=== PATIENT | male | born 2005 | race Caucasian/White ===

== ENCOUNTER 2023-04-15 22:57 | Emergency (ER) | payer SELFPAY ==
--- NOTE | ~2023-04-15 | XR_ITS ---
EXAMINATION: XR HAND, RIGHT CLINICAL INFORMATION: Injury. COMPARISON: None available. TECHNIQUE: PA, lateral, and oblique views of the right hand. FINDINGS: The bones and soft tissues are normal. No fracture. Alignment is anatomic. Joint spaces are maintained. No erosions or soft tissue calcifications. XR/XR hand RT min 3V IMPRESSION: No significant abnormality.
[2023-04-15 23:04] VITALS: BP 129/76; PULSE 82; RESP 18; TEMP 36.7; O2SAT 99; BMI 29.6
[2023-04-16 03:36] VITALS: BP 112/43; PULSE 73; RESP 17; TEMP 36.7; O2SAT 99
[2023-04-16 04:27] VITALS: BP 116/61; PULSE 63; RESP 15; TEMP 36.5; O2SAT 99
--- NOTE | 2023-04-16 04:49 | ED.GENADULT ---
HPI - General Adult General Chief complaint: Animal Bite Stated complaint: rt hand dog bite Time Seen by Provider: 04/16/23 04:42 History of Present Illness HPI narrative: Patient is an ordinarily healthy 17-year-old male. Earlier tonight, at around 21:00 on Friday, he was in [facility]. Walking his godmother's dog when another dog without a leash or ulnar present started fighting with the dog the patient was walking. The patient attempted to separate the dogs and in doing so was bitten on the right hand by the unknown dog. The dog then ran away. There is no information available about the rabies status of the dog that bit the patient's hand. The patient was staying with his godparents in [place], [place]. Apparently the patient recently moved to [place] from [place]. They came to this hospital because the patient's godfather is originally from this area and is familiar with this hospital. Related Data Previous Rx's Medication Instructions Recorded amoxicillin 875 mg-potassium 1 tab PO BID #7 tabs 04/16/23 clavulanate 125 mg tablet Allergies Allergy/AdvReac Type Severity Reaction Status Date / Time No Known Allergies Allergy Verified 04/15/23 23:09 Review of Systems Review of Systems: Yes all other systems are reviewed and are negative [facility] Social History Social History Alcohol intake: never Smoked in Last 30 Days: No Use of substances other than those prescribed or required for medical reasons: No Advance Directives: No Advance Directives Information Provided: No Physical Exam ED Vital Signs: Vital Signs - 24 hr 04/15/23 23:04 04/16/23 03:36 04/16/23 04:27 Temperature 98.1 F 98.0 F 97.7 F Pulse Rate 82 73 63 Respiratory Rate 18 17 15 Blood Pressure 129/76 112/43 L 116/61 Pulse Oximetry 99 99 99 Oxygen Delivery Method Room Air Room Air Room Air BMI result Body Mass Index 29.6 Const Other: The patient is awake and alert. He has Band-Aids on his right hand. He otherwise looks like a well-developed 17-year-old in no acute distress. HENMT Other: The face is symmetrical. ?Mucous membranes moist. Eyes Other: Pupils are round equal, conjunctivae are clear, extraocular movements intact Resp Effort & Inspection: normal respiratory effort Skin Other: The patient has several small partial-thickness wounds to the skin of the right hand. No suturable lacerations. Neuro Other: Normal function of the right hand. Normal sensation. Extrem Other: The patient has several partial-thickness wounds to the skin of the right hand mostly on the radial side of the hand. No suturable lacerations. The patient has good range of motion of the wrist and all the joints of the right hand. No deformity. Medications Administered Discontinued Medications Generic Name Dose Route Start Last Admin Trade Name Freq PRN Reason Stop Dose Admin Amoxicillin/Clavulanate Potassium 875 mg 04/16/23 04:51 04/16/23 05:07 Amoxicillin/Potassium Clav 875 Mg Tablet PO 04/16/23 04:52 875 mg ONCE ONE Administration Bacitracin 1 appl 04/16/23 04:54 04/16/23 04:59 Bacitracin Oint 0.9 Gm Packet TOPICAL 04/16/23 04:55 1 appl ONCE ONE Administration Protocol Rabies Immune Globulin 1,820 unit 04/16/23 04:51 04/16/23 05:31 Rabies Immune Globulin/Pf 900 Unit/3 Ml Vial 20 unit/kg (1820 unit) 04/16/23 04:52 1,820 unit IM Administration ONCE ONE Rabies Vaccine Human Diploid Cell 1 ml 04/16/23 04:51 04/16/23 05:23 Rabies Vaccine, Human Diploid (Imovax) 1 Ml Vial IM 04/16/23 04:52 1 ml .ONCE ONE Administration Medical Decision Making Medical Decision Making MDM Narrative: The patient is a 17-year-old who sustained a dog bite to the right hand a couple of hours ago. The dog was not on a leash or attended by an cashier supervisor. Therefore no history is available regarding the dog's rabies vaccination status and the dog can be observed. Therefore the patient will require rabies prophylaxis. The wounds were cleaned and he was started on Augmentin in addition to his rabies prophylaxis. He was advised to return on days 3, 7, and 14 for additional rabies vaccine. He received his 1st dose of rabies vaccine in the emergency room today as well as rabies immune globulin. Lab Data Labs: Lab Results 04/16/23 Range/Units 06:11 Chlam trachomat DNA PCR NOT DETECTED (Not Detect.) N.gonorrhoeae DNA (PCR) NOT DETECTED (Not Detect.) Discharge Plan Discharge Clinical Impression: Dog bite of right hand Patient Disposition: Home, Self-Care Instructions: Animal Bite (ED) Additional Instructions: Right you experienced is potentially a rabies exposure. You have therefore been started on a course of rabies prophylaxis. You received a dose of rabies immune globulin today. He also received your 1st dose of vaccine. In addition to the medications you received for prophylaxis this morning you will need 3 additional doses of rabies vaccine. You will need a dose of rabies vaccine on April 19, April 23, and April 30. You may return to this emergency room for these additional vaccine doses or you may go to the emergency room if it is more convenient. You also have been started on a course of antibiotics to help prevent an infection developing on your right hand where you were bitten. Please keep the wounds on the right hand clean and dry and covered with a Band-Aid. If you have any concern about developing an infection in any of the wounds on the right hand please return to the emergency room for further evaluation. If returning to this hospital is not convenient you may go to a different emergency room. Additionally please work on getting a new primary care doctor. Prescriptions: New amoxicillin-pot clavulanate 875-125 mg tablet 1 tab PO BID Qty: 7 0RF Interventions: ED Discharge Assessment Last Done: 04/16/23 06:22 Discharge Date/Time: 04/16/23 06:23
[2023-04-16] MEDS: Bacitracin Oint 0.9 GM PACKET 1 APPL TOPICAL (04:59)
[2023-04-16] MEDS: Amoxicillin/Potassium Clav 875 MG TABLET PO (05:07)
[2023-04-16] MEDS: Rabies Vaccine, Human Diploid (Imovax) 1 ML VIAL IM (05:23)
[2023-04-16] MEDS: Rabies Immune Globulin/PF 900 UNIT/3 ML VIAL 1820 UNIT IM (05:31)
--- NOTE | 2023-04-16 06:19 | PC.NURSE ---
Per Provider Carter Moss no injection needed to wound site. T/W split into 3 doses. Given to bilateral vastus lateralis and right deltoid.
[2023-04-16 11:16] LABS: CT PCR NOT DETECTED (Not Detect.); NG PCR NOT DETECTED (Not Detect.)
== END 2023-04-16 06:23 | disposition home or self-care (01) ==
PROVIDERS: Emergency Provider Emergency Medicine
DX: S61.451A Open bite of right hand, initial encounter (principal); W54.0XXA Bitten by dog, initial encounter; Y93.K1 Activity, walking an animal; Y92.414 Local residential or business street as the place of occurrence of the external cause; Y99.9 Unspecified external cause status; Z20.3 Contact with and (suspected) exposure to rabies
CPT/HCPCS: 0353U; 73130; 90375; 90471; 90675; 96372; 99284